=== PATIENT | male | born 1970 | race African-American/Black ===

== ENCOUNTER 2020-02-16 19:46 | Emergency (ER) | payer OTHER ==
[~2020-02-16] VITALS: Ht 180.3 cm; Wt 93.0 kg
[2020-02-16] MEDS ORDERED: LIDOCAINE HCL/PF 1% 10 MG/ML 5ML VIAL IJ ONE (20:30)
[2020-02-16] MEDS ORDERED: IBUPROFEN 600MG TABLET PO ONE (20:30)
[2020-02-16] MEDS ORDERED: BACITRACIN ZINC OINT UDPKT TOP ONE (20:30)
[2020-02-16] MEDS ORDERED: CEPHALEXIN 250MG CAPSULE PO ONE (21:15)
[2020-02-16 21:40] VITALS: BP 145/97
== END 2020-02-16 21:54 | disposition home or self-care (01) ==
LOC: ER 19:46
DX: S61.217A Laceration without foreign body of left little finger without damage to nail, initial encounter (principal); W26.0XXA Contact with knife, initial encounter; Y93.89 Activity, other specified; Y92.018 Other place in single-family (private) house as the place of occurrence of the external cause
CPT/HCPCS: 12001; 73140; 99284; J3490

== ENCOUNTER 2021-11-05 02:22 | Emergency (ER) | payer MEDICAID, OTHER ==
[~2021-11-05] VITALS: Ht 180.3 cm; Wt 83.3 kg
[2021-11-05 03:27] VITALS: BP 119/83
[2021-11-05] MEDS ORDERED: TOPUD PO (05:29)
[2021-11-05] MEDS ORDERED: ACETAMINOPHEN 325MG TABLET PO ONE (05:30)
== END 2021-11-05 05:29 | disposition home or self-care (01) ==
LOC: ER 02:22
DX: M79.622 Pain in left upper arm (principal); M79.621 Pain in right upper arm; G89.29 Other chronic pain; F20.9 Schizophrenia, unspecified; F31.9 Bipolar disorder, unspecified
CPT/HCPCS: 99281